=== PATIENT | male | born 1940 | race Caucasian/White ===

== ENCOUNTER 2022-05-17 08:12 | Outpatient (CLI) | payer MEDICARE, BC, SELFPAY ==
[2022-05-17 14:14] LABS: Chloride* 105 mmol/L (96-114); Potassium* 4.7 mmol/L (3.6-5.1); Sodium* 139 mmol/L (135-149)
[2022-05-17 14:17] LABS: Blood Urea Nitrogen* 31 mg/dL (7-30); Carbon Dioxide* 26 mmol/L (20-32); Cholesterol* 144 mg/dL (90-199); Creatinine* 1.3 mg/dL (0.5-1.5); Estimated Glomerular Filt Rate 55 ml/min; Glucose* 112 mg/dL (60-115); Triglycerides* 88 mg/dL (40-149)
[2022-05-17 14:18] LABS: Calcium* 9.2 mg/dL (8.4-10.6); HDL Cholesterol* 57 mg/dL (>=40); LDL Cholesterol Calculated 69 mg/dL (<100)
== END 2022-05-17 08:13 | disposition home or self-care (01) ==
PROVIDERS: PCP Family Medicine; Visit Provider Family Medicine
DX: I10 Essential (primary) hypertension (principal); E78.5 Hyperlipidemia, unspecified
CPT/HCPCS: 80048; 80061

== ENCOUNTER 2024-04-12 23:28 | Outpatient (CLI) | payer MEDICARE, BC, SELFPAY ==
--- OUTSIDE RECORDS SUMMARY | 2024-04-16 01:47 | XMS_ITS | Clinical Summary ---
Author Organization [facility] Address [place], [place] [address] Care Team Providers Care Brand Ambassadors Promotional Sales Name Role Phone Mak Herrera MD Primary Care Provider [phone] Allergies No known active allergies Medications Medication [...] with Surgery and radiation, [facility] in [place]. Essential hypertension 06/02/2023 Hypercholesterolemia 06/02/2023 Type 2 diabetes mellitus 06/02/2023 Overview (08/19/2023): July 2023: changed regular metformin to XR due to diarrhea with Regular metformin. Stage 3a chronic kidney disease 06/02/2023 Overview (06/02/2023): May 2023: Creatinine 1.67, GRF 41. Encounters Date Type Department Care Team Description 04/13/2024 Orders Only [facility] Scanner 1 scan: (1-Ord) [facility], HEAD/BRAIN W/O CONT, 04/13/2024 04/13/2024 Orders Only [facility] Scanner 1 scan: (1-Ord) [facility], XR CHEST 2V, 04/13/2024 04/13/2024 Orders Only [facility] Scanner 1 scan: (1-Ord) [facility], CERVICAL SPINE WO CON, 04/13/2024 from Last 3 Months Immunizations Name Administration Dates Next Due COVID-19 vaccine ([employer] 30mcg/0.3mL) P F, MDV 07/31/2020,07/10/2020 Influenza, High-dose [...] - Respiratory Rate 20 08/04/2020 11:29 AM IMPORT EXPORT CLERK Oxygen Saturation 99% 11/30/2023 9:53 AM CDT Inhaled Oxygen Concentration - - Weight 84.1 kg (185 lb 8 oz) 11/30/2023 9:53 AM CDT Height 165.7 cm (5' 5.25) 05/31/2023 8:02 AM CS T Body Mass Index 30.63 05/31/2023 8:02 AM IMPORT EXPORT CLERK Plan of Treatment Health Maintenance Due Date [...] Depression screening for age 12+ 05/31/2024 05/31/19 24 Medicare Wellness for age 65+ 05/31/2024 05/31/2023 Tetanus booster 01/29/2025 01/29/2015 Tdap Completed 01/29/2015 Procedures Procedure Name Priority Date/Time Associated Diagnosis Comments SCAN-CT INTERPRETATION 12:00 AM IMPORT EXPORT CLERK SCAN-RADIOLOGY REPORT 04/13/2024 12:00 AM IMPORT EXPORT CLERK SCAN-CT INTERPRETATION 4 12:00 AM IMPORT EXPORT CLERK from Last 3 Months Results * SCAN-RADIOLOGY REPORT (04/13/2024 12:00 AM IMPORT EXPORT CLERK) Anatomical Region Laterality Modality Other Scanner OTHER * SCAN-CT INTERPRETATION (04/13/2024 12:00 AM IMPORT EXPORT CLERK) Only the most recent of2 resultswithin the time period is included. Anatomical Region Laterality Modality Other Scanner OTHER from Last 3 Months Care Teams Brand Ambassadors Promotional Sales Relationship Specialty Start Date End Date Mak Herrera MD [address] [place] [address] PCP - General Family Practice 04/12/23
--- OUTSIDE RECORDS SUMMARY | 2024-04-16 01:47 | XMS_ITS | Clinical Summary ---
Author Organization [facility] Address [address] [place] [address] Care Team Providers Care Teacher Physically Impaired Name Role Phone Ramin Ortega MD Primary Care Provider [phone] Allergies No known active allergies Medications oxyCODONE [...] on file Legal Sex Male 12:51 PM EQUIPMENT SERVICE ASSOCIATE Gender Identity Not on file Sexual Orientation Not on file Last Filed Vital Signs Vital Sign Reading Time Taken Comments Blood Pressure 134/57 06/04/2018 8:24 AM EQUIPMENT SERVICE ASSOCIATE Pulse 77 06/03/2018 11:31 PM EQUIPMENT SERVICE ASSOCIATE Temperature 36.8 C (98.3 F) 06/04/2018 8:24 AM EQUIPMENT SERVICE ASSOCIATE Respiratory Rate 16 06/04/2018 8:24 AM EQUIPMENT SERVICE ASSOCIATE Oxygen Saturation 98% 06/04/2018 8:24 AM EQUIPMENT SERVICE ASSOCIATE Inhaled Oxygen Concentration - - Weight 85.3 kg (188 lb) 05/30/2018 6:04 PM EQUIPMENT SERVICE ASSOCIATE Height 167.6 cm (5' 6) 05/30/2018 6:04 PM EQUIPMENT SERVICE ASSOCIATE Body Mass Index 30.34 05/30/2018 6:04 PM EQUIPMENT SERVICE ASSOCIATE Plan of Treatment Health Maintenance Due Date Last Done Comments ANNUAL REVIEW OF HM ORDERS 1941 LIPID 1941 ZOSTER IMMUNIZATION (1 of 2) 1991 FALL RISK ASSESSMENT 2006 RSV VACCINE (1 - 1-dose 75+ series) 01/10/2016 Pneumococcal Vaccine: 65+ Years (2 of 2 - PPSV23 or PCV20) 01/30/2016 01/29/2015 PHQ-2 (once per calendar year) 2023 06/14/2018 ADVANCE CARE PLANNING 05/31/2023 05/31/2018 COVID-19 Vaccine ( season) 2024 03/06/2022, 03/10/2021, 07/31/2020, Additional history exists INFLUENZA VACCINE (#1) 2024 , 03/06/2022, 03/10/2021, Additional history exists DTAP/TDAP/TD IMMUNIZATION (2 - Td or Tdap) 01/29/2025 01/29/2015 HPV IMMUNIZATION Aged Out No longer e ligible based on patient's age to complete this topic MENINGITIS IMMUNIZATION Aged Out No l onger eligible based on patient's age to complete this topic RSV MONOCLONAL ANTIBODY Aged Out No l onger eligible based on patient's age to complete this topic Medical Devices Implanted Type Area Help Desk Operator Device Identifier Shelf Expiration Date Model / Serial / Lot 3.5 X 177 Mm Va-Lcp Proximal Tibia Plate, Small Bend, 10 Hole, Left Implanted:Qty: 1 on 05/31/2018 by Abdoul Mosley MD at [facility] Left: Tibia SYNTHES [id number] / / 3.5 X 16 Mm Locking Screw Implanted:Qty: 1 on 05/31/2018 by Abdoul Mosley MD at [facility] Left: Tibia SYNTHES 02.127.116 / / 3.5 X 34 Mm Locking Screw Implanted:Qty: 1 on 05/31/2018 by Abdoul Mosley MD at [facility] Left: Tibia SYNTHES 02.127.134 / / 3.5 X 36 Mm Locking Screw Implanted:Qty: 1 on 05/31/2018 by Abdoul Mosley MD at [facility] Left: Tibia SYNTHES 02.127.136 / / 3.5 X 75 Mm Locking Screw Implanted:Qty: 1 on 05/31/2018 by Abdoul Mosley MD at [facility] Left: Tibia SYNTHES 02.127.175 / / 3.5 X 127 Mm Locking Screw Implanted:Qty: 1 on 05/31/2018 by Abdoul Mosley MD at [facility] Left: Tibia SYNTHES 02.127.180 / / 3.5 X 85 Mm Locking Screw Implanted:Qty: 1 on 05/31/2018 by Abdoul Mosley MD at [facility] Left: Tibia SYNTHES [id number] / / 3.5 X 42 Mm Locking Screw Implanted:Qty: 1 on 05/31/2018 by Abdoul Mosley MD at [facility] Left: Tibia SYNTHES [id number] / / 3.5 X 65 Mm Locking Screw Implanted:Qty: 2 on 05/31/2018 by Abdoul Mosley MD at [facility] Left: Tibia SYNTHES [id number] / / Explanted Type Area Help Desk Operator Device Identifier Shelf Expiration Date Model / Serial / Lot Imp Scr Syn Cortex 3.5x65mm Self Tap Ss Explanted:Qty: 1 on 05/31/2018 by Abdoul Mosley MD at [facility] Metallic Hardware/Anc hor Left: Tibia SYNTHES-STRATEC [id number] / / Insurance [facility] BLUE MEDICARE [facility] [facility] [place] Advance Directives For more information, please contact: [phone] * Full Code (Latest Code Status on File) Date Activated Date Inactivated Comments 06/02/2018 8:28 PM Question Answer Comments Code status determined by: Unable to dis cuss and no AD/POLST on file; continue PREVIOUSLY ORDERED code status Care Teams Teacher Physically Impaired Relationship Specialty Start Date End Date Ramin Ortega MD PCP - General Family Practice 05/30/18
--- OUTSIDE RECORDS SUMMARY | 2024-04-16 01:47 | XMS_ITS | Referral Summary ---
Author Organization [facility] Address [address] [place] [address] Care Team Providers Care Wing Mailer Machine Operator Name Role Phone Ramin Ortega MD Primary Care Provider [phone] Allergies No known active allergies Medications oxyCODONE [...] on file Legal Sex Male 12:51 PM COREMAKER APPRENTICE Gender Identity Not on file Sexual Orientation Not on file Last Filed Vital Signs Vital Sign Reading Time Taken Comments Blood Pressure 134/57 06/04/2018 8:24 AM COREMAKER APPRENTICE Pulse 77 06/03/2018 11:31 PM COREMAKER APPRENTICE Temperature 36.8 C (98.3 F) 06/04/2018 8:24 AM COREMAKER APPRENTICE Respiratory Rate 16 06/04/2018 8:24 AM COREMAKER APPRENTICE Oxygen Saturation 98% 06/04/2018 8:24 AM COREMAKER APPRENTICE Inhaled Oxygen Concentration - - Weight 85.3 kg (188 lb) 05/30/2018 6:04 PM COREMAKER APPRENTICE Height 167.6 cm (5' 6) 05/30/2018 6:04 PM COREMAKER APPRENTICE Body Mass Index 30.34 05/30/2018 6:04 PM COREMAKER APPRENTICE Plan of Treatment Not on file Medical Devices Implanted Type Area Bench Inspector Device Identifier Shelf Expiration Date Model / Serial / Lot 3.5 X 177 Mm Va-Lcp Proximal Tibia Plate, Small Bend, 10 Hole, Left Implanted:Qty: 1 on 05/31/2018 by Abdoul Mosley MD at [facility] Left: Tibia SYNTHES [id number] / / 3.5 X 16 Mm Locking Screw Implanted:Qty: 1 on 05/31/2018 by Abdoul Mosley MD at [facility] Left: Tibia SYNTHES 02.127.116 / / 3.5 X 34 Mm Locking Screw Implanted:Qty: 1 on 05/31/2018 by Abdoul Mosley MD at [facility] Left: Tibia SYNTHES 02.127.134 / / 3.5 X 36 Mm Locking Screw Implanted:Qty: 1 on 05/31/2018 by Abdoul Mosley MD at [facility] Left: Tibia SYNTHES 02.127.136 / / 3.5 X 75 Mm Locking Screw Implanted:Qty: 1 on 05/31/2018 by Abdoul Mosley MD at [facility] Left: Tibia SYNTHES 02.127.175 / / 3.5 X 127 Mm Locking Screw Implanted:Qty: 1 on 05/31/2018 by Abdoul Mosley MD at [facility] Left: Tibia SYNTHES 02.127.180 / / 3.5 X 85 Mm Locking Screw Implanted:Qty: 1 on 05/31/2018 by Abdoul Mosley MD at [facility] Left: Tibia SYNTHES 127.185 / / 3.5 X 42 Mm Locking Screw Implanted:Qty: 1 on 05/31/2018 by Abdoul Mosley MD at [facility] Left: Tibia SYNTHES 127.142 / / 3.5 X 65 Mm Locking Screw Implanted:Qty: 2 on 05/31/2018 by Abdoul Mosley MD at [facility] Left: Tibia SYNTHES 127.165 / / Explanted Type Area Bench Inspector Device Identifier Shelf Expiration Date Model / Serial / Lot Imp Scr Syn Cortex 3.5x65mm Self Tap Ss Explanted:Qty: 1 on 05/31/2018 by Abdoul Mosley MD at [facility] Metallic Hardware/Anc hor Left: Tibia SYNTHES-STRATEC [id number] / / Insurance [facility] MEDICARE [place] BLUE Advance Directives For more information, please contact: [phone] * Full Code (Latest Code Status on File) Date Activated Date Inactivated Comments 06/02/2018 8:28 PM Question Answer Comments Code status determined by: Unable to dis cuss and no AD/POLST on file; continue PREVIOUSLY ORDERED code status Care Teams Wing Mailer Machine Operator Relationship Specialty Start Date End Date Ramin Ortega MD PCP - General Family Practice 05/30/18
== END 2024-04-12 23:29 | disposition home or self-care (01) ==
LOC: AMB 04-16 01:46
PROVIDERS: PCP Family Medicine; Visit Provider Family Medicine
DX: S09.93XA Unspecified injury of face, initial encounter (principal); W01.0XXA Fall on same level from slipping, tripping and stumbling without subsequent striking against object, initial encounter; Y92.480 Sidewalk as the place of occurrence of the external cause
CPT/HCPCS: A0425; A0427

== ENCOUNTER 2024-04-13 00:15 | Emergency (ER) | payer MEDICARE, BC, SELFPAY ==
[2024-04-13 00:24] VITALS: BP 135/70; PULSE 70; RESP 16; O2SAT 95
[2024-04-13 00:25] VITALS: BP 134/70; PULSE 90; RESP 20; TEMP 36.8; O2SAT 97
--- NOTE | 2024-04-13 00:25 | CRLHL7_ITS ---
For Patients: As a result of the Century Cures Act, medical imaging exams and procedure reports are released immediately into your electronic medical record. You may view this report before your referring provider. If you have questions, please contact your health care provider. INDICATION: Fall. TECHNIQUE: CT cervical spine without contrast. COMPARISON: None. FINDINGS: Vertebrae: Grade 1 anterolisthesis of C4 on C5, C5 on C6, and C7 on T1. No acute fracture or aggressive osseous lesion. Discs and facet joints: There are moderate to advanced degenerative disc changes most severe at C4-5 C5-6 and C6-7. There are moderate to advanced multilevel degenerative changes in the facets. Extraspinal findings: Paraspinous soft tissues are unremarkable. IMPRESSION: 1. No sign of acute injury. 2. Moderate to advanced multilevel degenerative spondylosis. Please note that all CT scans at this facility use dose modulation, iterative reconstruction, and/or weight-based dosing when appropriate to reduce radiation dose to as low as reasonably achievable. Dictated by Reji Garcia MD @ 04/13/2024 1:25:58 AM (Electronically Signed)
--- NOTE | 2024-04-13 00:25 | CRLHL7_ITS ---
For Patients: As a result of the Century Cures Act, medical imaging exams and procedure reports are released immediately into your electronic medical record. You may view this report before your referring provider. If you have questions, please contact your health care provider. INDICATION: Fall. TECHNIQUE: CT head without contrast. COMPARISON: Head CT 11/04/2021. FINDINGS: Brain parenchyma, CSF spaces, and extra-axial spaces: Mild global brain parenchymal volume loss with commensurate sulcal and ventricular enlargement. Areas of mild hypoattenuation within the bilateral periventricular white matter, consistent with chronic small vessel ischemic disease. The luong-white differentiation is normal. No sign of mass, hemorrhage, or midline shift. No hydrocephalus. No extra-axial fluid collection. Skull base and calvarium: Near-complete opacification of the bilateral frontal sinuses, bilateral maxillary sinuses, bilateral ethmoid air cells, and right sphenoid sinus. The mastoid air cells are clear. The visualized orbits are grossly unremarkable. No skull fracture. Small right frontal scalp hematoma. Atherosclerotic calcification of the bilateral carotid siphons and V4 segments of the vertebral arteries. IMPRESSION: 1. No evidence of an acute intracranial abnormality. 2. Small right frontal scalp hematoma. No underlying skull fracture. 3. Severe near-davis paranasal sinus disease Please note that all CT scans at this facility use dose modulation, iterative reconstruction, and/or weight-based dosing when appropriate to reduce radiation dose to as low as reasonably achievable. Dictated by Reji Garcia MD @ 04/13/2024 1:22:13 AM (Electronically Signed)
--- NOTE | 2024-04-13 00:26 | CRLHL7_ITS ---
For Patients: As a result of the Cures Act, medical imaging exams and procedure reports are released immediately into your electronic medical record. You may view this report before your referring provider. If you have questions, please contact your health care provider. INDICATION: Cough/wheezing, fall. TECHNIQUE: Chest 2 views. COMPARISON: None. FINDINGS: Cardiovascular and mediastinum: Normal heart size. Uncoiled thoracic aorta. Lungs and pleural spaces: No focal consolidation, pleural effusion, or pneumothorax. Bones and soft tissues: Age-indeterminate moderate compression fracture at the thoracolumbar junction. IMPRESSION: 1. No evidence of an acute pulmonary process. 2. Age-indeterminate moderate compression fracture at the thoracolumbar junction. Dictated by Reji Garcia MD @ 04/13/2024 1:16:04 AM (Electronically Signed)
[2024-04-13] MEDS: LIDOCAINE/EPINEP/TETRACAINE 3 ML GEL..ML. TOPICAL (00:32)
--- NOTE | 2024-04-13 00:36 | ED_ITS ---
HPI - Fall General Date Seen: 04/13/24 Chief Complaint: Fall/Minor Trauma Stated Complaint: Fall, face lac Time Seen by Provider: 04/13/24 00:24 Source: patient, EMS, RN notes reviewed and old records reviewed Mode of arrival: EMS Limitations: no limitations History of Present Illness HPI Narrative: Patient is 84-year-old gentleman brought in by EMS after a fall outside a bar. He laid on the ground for approximately 30-45 minutes, until people helped him up, EMS was called. To assess him they found to have lacerations, he complains of no pain at all. The because of the fall head injury onto concrete, he is brought in for an assessment. He is not on any anticoagulants other than aspirin. Denies any headache, neck pain, visual disturbances, loss of consciousness, amnesia, or really any other complaints. History of hyperlipidemia gout, Related Data Home Medications ?Medication ?Instructions ?Recorded ?Confirmed aspirin 81 mg tablet,delayed 81 mg PO Q OTHER DAY 05/12/22 04/13/24 release Previous Rx's ?Medication ?Instructions ?Recorded indomethacin 50 mg capsule 50 mg PO TID PRN gout #30 caps 01/15/22 atorvastatin 20 mg tablet 20 mg PO .Bedtime #90 tabs 05/17/22 lisinopril 20 1 tab PO DAILY #90 tabs 05/17/22 mg-hydrochlorothiazide 25 mg tablet metformin 500 mg tablet See Rx Instructions PO .ud #270 05/17/22 tabs colchicine 0.6 mg tablet 0.6 mg PO DAILY #9 tabs 03/09/23 allopurinol 100 mg tablet 200 mg (2 x 100 mg) PO QDAY #60 07/20/23 tabs Allergies Allergy/AdvReac Type Severity Reaction Status Date / Time No Known Allergies Allergy Unknown Unverified 07/14/22 09:45 Review of Systems Status of ROS: Reports: 10 or more systems reviewed and unremarkable except as noted in History and below [facility] Medical History (Updated 04/13/24 @ 02:06 by Brien Robbins MD) Stage 3a chronic kidney disease ?N18.31 - Chronic kidney disease, stage 3a (ICD-10) Diabetes mellitus, type II ?E11.9 - Type 2 diabetes mellitus without complications (ICD-10) Surgical History S/P ORIF (open reduction internal fixation) fracture ?Z98.890 - Other specified postprocedural states (ICD-10) ?Z87.81 - Personal history of (healed) traumatic fracture (ICD-10) Status post right inguinal hernia repair ?Z98.890 - Other specified postprocedural states (ICD-10) ?Z87.19 - Personal history of other diseases of the digestive system (ICD-10) Status post knee replacement ?Z96.659 - Presence of unspecified artificial knee joint (ICD-10) Social History Smoking Status: Former smoker Do you use any of these nicotine containing products: None Second hand tobacco smoke exposure: No How often do you have a drink containing alcohol: 4 or more times a week How many standard drinks containing alcohol do you have on a typical day: 1 or 2 AUDIT-C Alcohol total score: 4 Non-prescribed substance use: denies use service: No Exam Narrative: Exam Narrative: On examination patient is pleasant alert to 3 spheres, complains of absolutely no pain. Small lacerations are noted across the bridge of his nose, he has some dried blood around his nose, no pain along the nose at all. His pupils are equal round reactive to light, TMs are normal he has hearing aids in. No goldman sign, no evidence of any cranial injury, there is some injury to the front part of his face he has swelling noted of his frontal areas bilaterally, mouth opening is normal, no loose teeth no lip laceration, his tongue is otherwise normal. 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 No tenderness to his hands wrist shoulders elbows. His back is nontender to palpation, over the thoracic or lumbar spine abdomen is large and obese, with no tenderness to palpation moves all extremities independently and well. Const: Vital Signs, click to edit/add: Vital Signs - 24 hr 04/13/24 00:24 04/13/24 00:25 04/13/24 02:24 Temperature 98.2 F Pulse Rate [Right Pulse Oximeter] 70 90 75 Respiratory Rate 16 20 18 Blood Pressure [Ri ght Upper Arm] 135/70 134/70 120/60 Pulse Oximetry 95 97 96 Oxygen Delivery Me thod Room Air Room Air Room Air Documenting provider has reviewed patient's vital signs: yes Course Course ED Course: I discussed with the patient and his daughters. He has fallen and injured himself, the head CT both look nonacute. I was able to glue across the bridge of his nose the small laceration x2 x 5 mm he tolerated this well. We did apply bacitracin to some other this scrapes that he had on his face. He was doing well with no complaints. We discussed the atrial fibrillation is 1 of my nurses noted the alarm was alarming secondary to this. His EKG did showed atrial fibrillation any is no record of this in his notes. And his daughters confirm this, this may be from recent or this may be from longstanding. I do know that alcohol does cause atrial fibrillation and he also had somewhat of an enlarged heart on the chest x-ray. Follow-up with his primary care physician is needed this is not emergency tonight, consideration of anticoagulation but not tonight as he has fallen,, and rate control if that becomes an issue. They were comfortable with this. He was a little raspy, the EMS did notice that he did not really improve with the albuterol nebs that they gave him. His COVID swabs here were negative. No evidence of pneumonia on x-ray, and his daughters confirm that he has had a cough for quite some time since he started the medication for his high blood pressure. I do recommend that he follow-up with his primary care physician for this also Vital Signs Vital signs: Initial Vital Signs Pulse Rate 70 04/13/24 00:24 Pulse Rhythm Irregularly Irregular 04/13/24 00:24 Respiratory Rate 16 04/13/24 00:24 Blood Pressure 135/70 04/13/24 00:24 Blood Pressure Mean 91 04/13/24 00:24 Blood Pressure Position Semi-Fowlers 04/13/24 00:24 Pulse Oximetry 95 04/13/24 00:24 Oxygen Delivery Method Room Air 04/13/24 00:24 Vital Signs Pulse Rate 70 04/13/24 00:24 Respiratory Rate 16 04/13/24 00:24 Blood Pressure 135/70 04/13/24 00:24 Pulse Oximetry 95 04/13/24 00:24 Oxygen Delivery Method Room Air 04/13/24 00:24 Temperature 98.2 F 04/13/24 00:25 Pulse Rate 75 04/13/24 02:24 Respiratory Rate 18 04/13/24 02:24 Blood Pressure 120/60 04/13/24 02:24 Pulse Oximetry 96 04/13/24 02:24 Oxygen Delivery Method Room Air 04/13/24 02:24 Medications Administered Medications: Discontinued Medications Generic Name Dose Route Start Last Admin Trade Name Yvon PRN Reason Stop Dose Admin Ondansetron HCl 4 mg 04/13/24 01:13 04/13/24 01:17 Ondansetron 2 Mg/Ml Inj IVP 04/13/24 01:14 4 mg ONCE ONE Administration Lidocaine/Epinephrine/Tetracaine 3 ml 04/13/24 00:26 04/13/24 00:32 Lidocaine/Epinep/Tetracaine 3 Ml Gel..Ml. TOPICAL 04/13/24 00:27 3 ml ONCE ONE Administration MDM - Fall MDM Narrative Medical decision making narrative: Life-threatening differential diagnosis is considered include: Subarachnoid hemorrhage, subdural hemorrhage, epidural hemorrhage. Other differential diagnosis considered include concussion, closed head injury, or neck fracture. Medical Records Attestation: I reviewed the patient's medical records. Lab Data Labs: Lab Results 04/13/24 Range/Units 00:43 SARS-CoV-2 (PCR) Negative SARS-CoV-2 (Negative) Influenza Type A (PCR) Negative PCR FLU A (Negative) Influenza Type B (PCR) Negative PCR FLU B (Negative) RSV (PCR) Negative PCR RSV (Negative) ECG Data Attestation: I personally reviewed and interpreted this ECG as follows: ECG interpretation date: 04/13/24 Prior ECG tracings: not available for review Interpretation: Atrial fibrillation, with some ST wave flattening noted, prominently at laterally. QRS 96 milliseconds QT 374 QTC 452. Discharge Plan Discharge Clinical Impression: Head injury, Laceration, Facial injury, Fall, Atrial fibrillation Patient Disposition: Home w/ Parent or Adult Condition: Improved Instructions: A-fib (Atrial Fibrillation) (ED), Blood Thinners (ED) Additional Instructions: Home rest I would suggest trying to abstain from the alcohol issue of atrial fibrillation, this needs to be followed up with your primary care physician, I am not sure how long it had this for, but it could be for quite some time or could be more recent. If your heart grows faster than usually 120 we recommend you come into the emergency room or you feel shortness of breath/chest pain or faint. Recommend bacitracin on the wounds, with exception of where I put the glue. If develops nausea vomiting unequal pupils on problems walking then bring him back. Activity Level: Light activity Prescriptions: No Action atorvastatin 20 mg tablet 20 mg PO .Bedtime Qty: 90 3RF lisinopril-hydrochlorothiazide 20-25 mg tablet 1 tab PO DAILY Qty: 90 3RF metformin 500 mg tablet See Rx Instructions PO .ud Qty: 270 3RF Rx Instructions: 500 mg QAM, and 1000 mg with supper orally UD; aspirin 81 mg tablet,delayed release (DR/EC) 81 mg PO Q OTHER DAY indomethacin 50 mg capsule 50 mg PO TID PRN (Reason: gout) Qty: 30 5RF Rx Instructions: administer with food or milk colchicine 0.6 mg tablet 0.6 mg PO DAILY Qty: 9 1RF allopurinol 100 mg tablet 200 mg PO QDAY Qty: 60 0RF Follow Up/Referrals: Arvin Ortega MD [Staff Physician] - Stand Alone Forms: netomat Info Instructions
--- OUTSIDE RECORDS SUMMARY | 2024-04-13 00:55 | XMS_ITS | Referral Summary ---
Author Organization [facility] Address [address] [place] [address] Care Team Providers Care Advance Scout Name Role Phone Ramin Ortega MD Primary Care Provider [phone] Allergies No known active allergies Medications oxyCODONE (ROXICODONE) 5 MG tabletIndicatio ns:Periprosthet ic fracture of proximal end of tibia, initial encounter Take 1-2 tablets (5-10 mg) by mouth every 4 hours as needed for moderate to severe pain (please give 1 tablet for pain 4-7/10 and two tablets for pain 8-10/10) 40 tablet 9 Active Additional Information Patient not taking.Reported on 08/28/2018 lisinopril (PRINIVIL/ZESTR IL) 10 MG tabletIndicatio ns:Periprosthet ic fracture of proximal end of tibia, initial encounter Take 1 tablet (10 mg) by mouth daily 30 tablet 9 Active atorvastatin (LIPITOR) 20 MG tablet Take 20 mg by mouth Active aspirin (ASA) 81 MG chewable tablet Take 81 mg by mouth Active Active Problems Problem Noted Date Diagnosed Date Periprosthetic fracture of proximal end of tibia 05/30/2018 Social History Tobacco Use Types Packs/Day Years Used Date Smoking Tobacco: Never Assessed PHQ-2 Answer Date Recorded PHQ-2 Score 0 06/14/2018 Sex and Gender Information Value Date Recorded Sex Assigned at Not on file Legal Sex Male 12:51 PM PARAPROFESSIONAL EDUCATION ASSISTANT Gender Identity Not on file Sexual Orientation Not on file Last Filed Vital Signs Vital Sign Reading Time Taken Comments Blood Pressure 134/57 06/04/2018 8:24 AM PARAPROFESSIONAL EDUCATION ASSISTANT Pulse 77 06/03/2018 11:31 PM PARAPROFESSIONAL EDUCATION ASSISTANT Temperature 36.8 ??C (98.3 ??F) 06/04/2018 8:24 AM CS T Respiratory Rate 16 06/04/2018 8:24 AM PARAPROFESSIONAL EDUCATION ASSISTANT Oxygen Saturation 98% 06/04/2018 8:24 AM PARAPROFESSIONAL EDUCATION ASSISTANT Inhaled Oxygen Concentration - - Weight 85.3 kg (188 lb) 05/30/2018 6:04 PM PARAPROFESSIONAL EDUCATION ASSISTANT Height 167.6 cm (5' 6) 05/30/2018 6:04 PM PARAPROFESSIONAL EDUCATION ASSISTANT Body Mass Index 30.34 05/30/2018 6:04 PM PARAPROFESSIONAL EDUCATION ASSISTANT Plan of Treatment Not on file Medical Devices Implanted Type Area Electronic Engineering Draftsperson Device Identifier Shelf Expiration Date Model / Serial / Lot 3.5 X 177 Mm Va-Lcp Proximal Tibia Plate, Small Bend, 10 Hole, Left Implanted:Qty: 1 on 05/31/2018 by Abdoul Mosley MD at [facility] Left: Tibia SYNTHES [id number] / / 3.5 X 16 Mm Locking Screw Implanted:Qty: 1 on 05/31/2018 by Abdoul Mosley MD at [facility] Left: Tibia SYNTHES 02.127.116 / / 3.5 X 34 Mm Locking Screw Implanted:Qty: 1 on 05/31/2018 by Abdoul Mosley MD at [facility] Left: Tibia SYNTHES 02.127.134 / / 3.5 X 36 Mm Locking Screw Implanted:Qty: 1 on 05/31/2018 by Abdoul Mosley MD at [facility] Left: Tibia SYNTHES 02.127.136 / / 3.5 X 75 Mm Locking Screw Implanted:Qty: 1 on 05/31/2018 by Abdoul Mosley MD at [facility] Left: Tibia SYNTHES 02.127.175 / / 3.5 X 127 Mm Locking Screw Implanted:Qty: 1 on 05/31/2018 by Abdoul Mosley MD at [facility] Left: Tibia SYNTHES 02.127.180 / / 3.5 X 85 Mm Locking Screw Implanted:Qty: 1 on 05/31/2018 by Abdoul Mosley MD at [facility] Left: Tibia SYNTHES 127.185 / / 3.5 X 42 Mm Locking Screw Implanted:Qty: 1 on 05/31/2018 by Abdoul Mosley MD at [facility] Left: Tibia SYNTHES 127.142 / / 3.5 X 65 Mm Locking Screw Implanted:Qty: 2 on 05/31/2018 by Abdoul Mosley MD at [facility] Left: Tibia SYNTHES 127.165 / / Explanted Type Area Electronic Engineering Draftsperson Device Identifier Shelf Expiration Date Model / Serial / Lot Imp Scr Syn Cortex 3.5x65mm Self Tap Ss Explanted:Qty: 1 on 05/31/2018 by Abdoul Mosley MD at [facility] Metallic Hardware/Anc hor Left: Tibia SYNTHES-STRATEC 204.865 / / Insurance [facility] MEDICARE [id number] [place] [address] BC [place] [address] Advance Directives For more information, please contact: [phone] * Full Code (Latest Code Status on File) Date Activated Date Inactivated Comments 06/02/2018 8:28 PM Question Answer Comments Code status determined by: Unable to dis cuss and no AD/POLST on file; continue PREVIOUSLY ORDERED code status Care Teams Advance Scout Relationship Specialty Start Date End Date Ramin Ortega MD PCP - General Family Practice 05/30/18
--- OUTSIDE RECORDS SUMMARY | 2024-04-13 00:55 | XMS_ITS | Clinical Summary ---
Author Organization [facility] Address [address] [place] [address] Care Team Providers Care Inclusion Paraeducator Name Role Phone Ramin Ortega MD Primary Care Provider [phone] Allergies No known active allergies Medications oxyCODONE [...] on file Legal Sex Male 12:51 PM SYSTEM INTEGRATION ENGINEER Gender Identity Not on file Sexual Orientation Not on file Last Filed Vital Signs Vital Sign Reading Time Taken Comments Blood Pressure 134/57 06/04/2018 8:24 AM SYSTEM INTEGRATION ENGINEER Pulse 77 06/03/2018 11:31 PM SYSTEM INTEGRATION ENGINEER Temperature 36.8 ??C (98.3 ??F) 06/04/2018 8:24 AM CS T Respiratory Rate 16 06/04/2018 8:24 AM SYSTEM INTEGRATION ENGINEER Oxygen Saturation 98% 06/04/2018 8:24 AM SYSTEM INTEGRATION ENGINEER Inhaled Oxygen Concentration - - Weight 85.3 kg (188 lb) 05/30/2018 6:04 PM SYSTEM INTEGRATION ENGINEER Height 167.6 cm (5' 6) 05/30/2018 6:04 PM SYSTEM INTEGRATION ENGINEER Body Mass Index 30.34 05/30/2018 6:04 PM SYSTEM INTEGRATION ENGINEER Plan of Treatment Not on file Medical Devices Implanted Type Area Launch Commander [employer] Device Identifier Shelf Expiration Date Model / Serial / Lot 3.5 X 177 Mm Va-Lcp Proximal Tibia Plate, Small Bend, 10 Hole, Left Implanted:Qty: 1 on 05/31/2018 by Abdoul Mosley MD at [facility] Left: Tibia SYNTHES 02.127.241 / / 3.5 X 16 Mm Locking Screw Implanted:Qty: 1 on 05/31/2018 by Abdoul Mosley MD at [facility] Left: Tibia SYNTHES 02.127.116 / / 3.5 X 34 Mm Locking Screw Implanted:Qty: 1 on 05/31/2018 by Abdoul Mosley MD at [facility] Left: Tibia SYNTHES 02.127.134 / / 3.5 X 36 Mm Locking Screw Implanted:Qty: 1 on 05/31/2018 by Abdoul Mosley MD at [facility] Left: Tibia SYNTHES 02.127.136 / / 3.5 X 75 Mm Locking Screw Implanted:Qty: 1 on 05/31/2018 by Abdoul Mosley MD at [facility] Left: Tibia SYNTHES 02.127.175 / / 3.5 X 127 Mm Locking Screw Implanted:Qty: 1 on 05/31/2018 by Abdoul Mosley MD at [facility] Left: Tibia SYNTHES 02.127.180 / / 3.5 X 85 Mm Locking Screw Implanted:Qty: 1 on 05/31/2018 by Abdoul Mosley MD at [facility] Left: Tibia SYNTHES 127.185 / / 3.5 X 42 Mm Locking Screw Implanted:Qty: 1 on 05/31/2018 by Abdoul Mosley MD at [facility] Left: Tibia SYNTHES 127.142 / / 3.5 X 65 Mm Locking Screw Implanted:Qty: 2 on 05/31/2018 by Abdoul Mosley MD at [facility] Left: Tibia SYNTHES 127.165 / / Explanted Type Area Launch Commander [employer] Device Identifier Shelf Expiration Date Model / Serial / Lot Imp Scr Syn Cortex 3.5x65mm Self Tap Ss Explanted:Qty: 1 on 05/31/2018 by Abdoul Mosley MD at [facility] Metallic Hardware/Anc hor Left: Tibia SYNTHES-STRATEC 204.865 / / Insurance [facility] MEDICARE [address] [place] [address] [place] [address] Advance Directives For more information, please contact: [phone] * Full Code (Latest Code Status on File) Date Activated Date Inactivated Comments 06/02/2018 8:28 PM Question Answer Comments Code status determined by: Unable to dis cuss and no AD/POLST on file; continue PREVIOUSLY ORDERED code status Care Teams Inclusion Paraeducator Relationship Specialty Start Date End Date Ramin Ortega MD PCP - General Family Practice 05/30/18
--- OUTSIDE RECORDS SUMMARY | 2024-04-13 00:55 | XMS_ITS | Clinical Summary ---
Author Organization [facility] Address [place], [place] [address] Care Team Providers Care Store Stock Help Name Role Phone Mak Herrera MD Primary Care Provider [phone] Allergies No known active allergies Medications Medication Sig Dispensed Refills Start Date End Date Status aspirin chewable 81 mg chewable tablet Chew 81 mg by mouth once every other day if needed (takes every other day). Active amoxicillin (AMOXIL) 500 mg tabletIndications:Sta tus post bilateral knee replacements 2,000mg ( 4 of the 500mg pills) by mouth 30 minutes Prior to dental visits. 4 Tablet 1 05/31/2023 Active atorvastatin (LIPITOR) 20 mg tabletIndications:Hyp ercholesterolemia Take 1 Tablet (20 mg) by mouth once daily. For Cholesterol. 90 Tablet 3 05/31/2023 Active lisinopril-hydrochlor othiazide, 20-25 mg, (PRINZIDE, ZESTORETIC) 20-25 mg per tabletIndications:Ess ential hypertension Take 1 Tablet by mouth once daily. For blood pressure. 90 Tablet 3 05/31/2023 Active colchicine (COLCRYS, colchicine,) 0.6 mg tablet 1.2 mg ORALLY at the first sign of a flare followed by 0.6 mg one hr later; MAX 1.8 mg over 1 hour/episode. Stop if GI side effects. 05/31/2023 Active metFORMIN (GLUCOPHAGE XR) 500 mg Extended-Release tabletIndications:Typ e 2 diabetes mellitus with stage 3a chronic kidney disease, without long-term current use of insulin (HC) 1 pill ( 500mg) in the morning and 2pills ( 1,000mg) in the evening for Diabetes. 270 Tablet 2 08/17/2023 Active Active Problems Problem Noted Date Diagnosed Date Squamous cell carcinoma of scalp 08/17/2023 Overview (08/17/2023): 2021: treatment with Surgery and radiation, [facility] in [place]. Essential hypertension 06/02/2023 Hypercholesterolemia 06/02/2023 Type 2 diabetes mellitus 06/02/2023 Overview (08/19/2023): July 2023: changed regular metformin to XR due to diarrhea with Regular metformin. Stage 3a chronic kidney disease 06/02/2023 Overview (06/02/2023): May 2023: Creatinine 1.67, GRF 41. Immunizations Name Administration Dates Next Due COVID-19 vaccine ([employer] 30mcg/0.3mL) P F, MDV 07/31/2020,07/10/2020 Influenza, High-dose Quadrivalent Inactivated ,03/11/2020 Influenza, Inactivated AIIV4 (Age 65+ Years) Preserv Free 03/16/2023,03/10/2021 Pneumococcal conj 13-Valent (Prevnar 13) 015 Tdap 01/29/2015 Family History Medical History Relation Name Comments Heart attack Father Heart attack Mother Relation Name Status Comments Father Mother Social History Tobacco Use Types Packs/Day Years Used Date Smoking Tobacco: Never Smokeless Tobacco: Never Tobacco Cessation:Counseling Given: Yes Alcohol Use Standard Drinks/Week Comments Yes 0 (1 standard drink = 0.6 oz pur e alcohol) Bottle of beer per day PHQ-2 Answer Date Recorded PHQ-2 TOTAL SCORE 0 05/31/2023 Social Connections Answer Date Recorded Do you often feel lonely or isolated from those around you? 0 05/31/2023 Financial Resource Strain Answer Date R ecorded Difficulty of Paying Living Expenses 3 05/31/2023 Difficulty of Paying Living Expenses Not on file 05/31/2023 Food Insecurity Answer Date Recorded Do you worry your food will run out before you are able to buy more? 1 05/31/2023 Transportation Needs Answer Date Record ed Does lack of transportation keep you from medica l appointments? 1 05/31/2023 Does lack of transportation keep you from work, meetings or getting things that you need? 1 05/31/2023 Housing Stability Answer Date Recorded What is your housing situation today? 1 05/31/2023 Sex and Gender Information Value Date Recorded Sex Assigned at Not on file Gender Identity Not on file Sexual Orientation Not on file Obstetrics History Last Filed Vital Signs Vital Sign Reading Time Taken Comments Blood Pressure 142/78 11/30/2023 10:25 AM CDT Pulse 71 11/30/2023 9:53 AM CDT Temperature - - Respiratory Rate 20 08/04/2020 11:29 AM GRASSLAND CONSERVATIONIST Oxygen Saturation 99% 11/30/2023 9:53 AM CDT Inhaled Oxygen Concentration - - Weight 84.1 kg (185 lb 8 oz) 11/30/2023 9:53 AM CDT Height 165.7 cm (5' 5.25) 05/31/2023 8:02 AM CS T Body Mass Index 30.63 05/31/2023 8:02 AM GRASSLAND CONSERVATIONIST Plan of Treatment Health Maintenance Due Date Last Done Comments Zoster (shingles) series for age 50+ (1 of 2) 1991 Pneumococcal series for age 65+ (2 of 2 - PPSV23 or PCV20) 03/26/2015 01/29/2015 RSV vaccine for adults or (1 - 1-dose 75+ series) 01/10/2016 COVID-19 vaccine series ( season) 2024 03/06/2022, 03/10/2021, 07/31/2020, Additional history exists Influenza for age 65+ 01/27/2024 03/16/2023 , 03/06/2022, 03/10/2021, Additional history exists BMI (ht and wt on same day) for age 18+ 05/31/2024 05/31/2023 Depression screening for age 12+ 05/31/2024 05/31/19 Medicare Wellness for age 65+ 05/31/2024 05/31/2023 Tetanus booster 01/29/2025 01/29/2015 Tdap Completed 01/29/2015 Care Teams Store Stock Help Relationship Specialty Start Date End Date Mak Herrera MD [address] [place] [address] PCP - General Family Practice 04/12/23
[2024-04-13] MEDS: ONDANSETRON 2 MG/ML inj 4 MG IVP (01:17)
[2024-04-13 01:22] LABS: PCR FLU A Negative PCR FLU A (Negative); PCR FLU B Negative PCR FLU B (Negative); PCR RSV Negative PCR RSV (Negative); SARS PCR* Negative SARS-CoV-2 (Negative)
[2024-04-13 02:24] VITALS: BP 120/60; PULSE 75; RESP 18; O2SAT 96
[2024-04-13 02:45] LABS: Ethanol* 0.14 % (0.01-0.03)
== END 2024-04-13 02:49 | disposition home or self-care (01) ==
PROVIDERS: Emergency Provider Family Medicine; PCP Family Medicine
DX: S01.21XA Laceration without foreign body of nose, initial encounter (principal); W01.0XXA Fall on same level from slipping, tripping and stumbling without subsequent striking against object, initial encounter; I48.91 Unspecified atrial fibrillation
CPT/HCPCS: 36415; 70450; 71046; 72125; 82077; 87631; 93005; 96374; 99284; 99285; J2405